=== PATIENT | male | born 1940 | race Caucasian/White ===

== ENCOUNTER 2021-04-10 07:44 | Day surgery (SDC) | payer OTHER ==
[~2021-04-10 07:44] MED LIST: Alph-E-Mixed400 UNIT PO; Alphagan P5 ML BOTHEYES; CLEM1.34; LATA.005SO BOTHEYES; MAGCHL64ER PO; MAGNESIUM250 MG PO; METO50ER PO; OMEP20ER PO; Omeprazole20 M1 PO; TIMO.25OPS BOTHEYES; TIMO10T EXT; Xalatan2.5 ML
== END 2021-04-10 09:45 | disposition home or self-care (01) ==
LOC: ORSCSDS 07:44
PROVIDERS: Student in an Organized Health Care Education/Training Program
PROC: 0DB58ZX Excision of Esophagus, Via Natural or Artificial Opening Endoscopic, Diagnostic (ICD-10-PCS; principal; 2021-04-10 09:00)
DX: K22.70 Barrett's esophagus without dysplasia (principal); K44.9 Diaphragmatic hernia without obstruction or gangrene; Z79.899 Other long term (current) drug therapy
CPT/HCPCS: 88305; J2704

== ENCOUNTER 2025-04-06 06:24 | Day surgery (SDC) | payer OTHER ==
[~2025-04-06] VITALS: Ht 167.6 cm; Wt 66.3 kg
--- NOTE | 2025-04-06 09:20 | NUR ---
04/06/25 0920 ELIECER QUEZADA 1 ML NS USED INTRAOP, INJECTED DURING COLONOSCOPIC POLYPECTOMY
[2025-04-06 09:42] VITALS: BP 102/66
== END 2025-04-06 09:50 | disposition home or self-care (01) ==
LOC: ORSCSDS 06:24
PROVIDERS: Specialist
PROC: 0DBL8ZX Excision of Transverse Colon, Via Natural or Artificial Opening Endoscopic, Diagnostic (ICD-10-PCS; principal; 2025-04-06 08:30)
PROC: 0DBK8ZX Excision of Ascending Colon, Via Natural or Artificial Opening Endoscopic, Diagnostic (ICD-10-PCS; principal; 2025-04-06 08:30)
PROC: 0DJ08ZZ Inspection of Upper Intestinal Tract, Via Natural or Artificial Opening Endoscopic (ICD-10-PCS; principal; 2025-04-06 08:30)
PROC: 3E0H8KZ Introduction of Other Diagnostic Substance into Lower GI, Via Natural or Artificial Opening Endoscopic (ICD-10-PCS; principal; 2025-04-06 08:30)
DX: K22.70 Barrett's esophagus without dysplasia (principal); K21.9 Gastro-esophageal reflux disease without esophagitis; Z12.11 Encounter for screening for malignant neoplasm of colon; Z86.0100 Personal history of colon polyps, unspecified; D12.2 Benign neoplasm of ascending colon; D12.3 Benign neoplasm of transverse colon; K64.8 Other hemorrhoids; K57.30 Diverticulosis of large intestine without perforation or abscess without bleeding; I10 Essential (primary) hypertension; Z79.899 Other long term (current) drug therapy
CPT/HCPCS: 88305; J2704; J7120

== ENCOUNTER 2025-05-20 10:25 | Day surgery (SDC) | payer OTHER ==
[~2025-05-20 10:25] MED LIST changes: +Balanced Salt Epinephrine Irrigation Solution 500 mL IR SCH; +Moxifloxacin HCL 0.5 MG/0.1 ML 0.4MLSYR LEFTEYE SCH; +NS 500 ML IV ONE; +Ondansetron 4 MG SoluTab MM PRN; +PHENYLEPHRINE\\TROPICAMIDE\\TETRACAINE OPHTHALMIC DILATING SOLN LEFTEYE PRN; +Povidone-Iodine 450 DROP/30 ML Solution LEFTEYE SCH; +Povidone-Iodine 450 DROP/30 ML Solution ONE; +Tetracaine HCl/Pf 0.5% Opth Soln 4 ml ONE; +Triamcinolone Inj Susp 40 MG / ML 1ML Vial INJ SCH; +Triamcinolone Inj Susp 40 MG / ML 1ML Vial ONE; +diazePAM 2 MG,diazePAM 5 MG PO SCH
[2025-05-20] MEDS ORDERED: NS 1,000 ML IV ONE (10:58)
--- NOTE | 2025-05-20 11:03 | NUR ---
05/20/25 1103 ELIECER QUEZADA PT RESTING ON GURNEY, DENIES ANXIETY. CALL LIGHT IN PT HAND, RAILS UP, GURN IN LOW POSITION. PT DENIES NEEDS/ QUESTIONS. PT EDUCATED ON WHAT TO EXPECT/POST OP CARE.
[2025-05-20] MEDS ORDERED: FentaNYL Citrate 50 MCG/ML 2 ML Injection ONE (11:26)
[2025-05-20] MEDS ORDERED: Tetracaine HCl 0.5% Opth Soln 15 ml LEFTEYE ONE (11:27)
[2025-05-20] MEDS ORDERED: Midazolam HCl 1MG / ML 2ML Vial ONE (11:39)
--- NOTE | 2025-05-20 13:07 | NUR ---
05/20/25 1307 Silverio Gray PT INSTRUCTED TO MONITOR B/P AT HOME AND FOLLOW UP WITH PCP NEEDED.
[2025-05-20 13:08] VITALS: BP 140/72
== END 2025-05-20 12:18 | disposition home or self-care (01) ==
LOC: ORSCSDS 10:25
PROVIDERS: Ophthalmology
PROC: 08RK3JZ Replacement of Left Lens with Synthetic Substitute, Percutaneous Approach (ICD-10-PCS; principal; 2025-05-20 12:00)
DX: H25.813 Combined forms of age-related cataract, bilateral (principal); H52.202 Unspecified astigmatism, left eye; I10 Essential (primary) hypertension; I50.9 Heart failure, unspecified; K21.9 Gastro-esophageal reflux disease without esophagitis; Z87.891 Personal history of nicotine dependence; Z79.899 Other long term (current) drug therapy; Z85.828 Personal history of other malignant neoplasm of skin
CPT/HCPCS: J2250; J3010; J3301; J7040; V2632